=== PATIENT | male | born 1965 ===

== ENCOUNTER 2019-07-03 20:07 | Emergency (ER) | payer BC ==
[2019-07-03] MEDS ORDERED: Tetan/Diph/Pertus SYR(Tdap)* 0.5 ML SYR(BOOSTRIX) use SYR IM ONE (20:08)
--- NOTE | 2019-07-03 20:09 | UC ---
Laceration HPI - HPI Summary HPI Summary: 54 yo male presents with RIGHT 5th digit laceration. He tells me that he was out to dinner at a local restaurant and went to pull his seat forward and his right 5th fingertip was caught between the seat cushion and the metal of the chair. He pulled his finger away and sustained a laceration to the tip of his right 5th digit. He is right handed. He bandaged the area and came to . Unsure the date of his last tetanus. - History Of Current Complaint Stated Complaint: FINGER LACERATION Time Seen by Provider: 07/03/19 20:07 Hx Obtained From: Patient Laceration Location: Finger Onset/Duration: Sudden Onset Severity: Mild Pain Intensity: 3 Pain Scale Used: 0-10 Numeric - Allergies/Home Medications Allergies/Adverse Reactions: Allergies Allergy/AdvReac Type Severity Reaction Status Date / Time No Known Allergies Allergy Verified 07/03/19 20:21 PMH/Surg Hx/FS Hx/Imm Hx - Additional Past Medical History Additional PMH: None - Surgical History Surgical History: None - Family History Known Family History: Positive: Non-Contributory - Social History Occupation: Employed Full-time Lives: With Family Alcohol Use: Occasionally Substance Use Type: None Smoking Status (MU): Former Smoker Review of Systems All Other Systems Reviewed And Are Negative: No Constitutional: Positive: Negative Skin: Positive: Other - Finger laceration Respiratory: Positive: Negative Cardiovascular: Positive: Negative Neurovascular: Positive: Negative Neurological: Positive: Negative Psychological: Positive: Negative Physical Exam - Summary Physical Exam Summary: GENERAL: NAD. WDWN. No pain distress. SKIN: RIGHT 5th digit: distal aspect with 1.0cm partial avulsion horizontal through the distal fingernail. Radial aspect avulsed, but ulnar aspect attached in a flap-like fashion. Scant bleeding. No bone appreciated. CHEST: No accessory muscle use. Breathing comfortably and in no distress. CV: Pulses intact. Cap refill <2seconds NEURO: Alert. PSYCH: Age appropriate behavior. Triage Information Reviewed: Yes Vital Signs: Vital Signs: Temp Pulse Resp BP Pulse Ox 99.5 F 94 16 153/113 98 07/03/19 20:14 07/03/19 20:14 07/03/19 20:14 07/03/19 20:14 07/03/19 20:14 Vital Signs Reviewed: Yes Laceration Repair - Laceration Repair 1 Description: Linear Laceration Size After Repair: Length (cm) - 1.0 Modified For Repair: No Anesthesia Used: 2.0% Lido Irrigation With Pressure Irrigation Device: Yes Closure Material: Sutures - #5 Closure Method: Single Layer Suture Of: Skin Suture Type: Prolene - 6-0 Laceration Course/Dx - Course/Dx Course Of Treatment: The procedure was explained to the pt and all questions were answered. A time out was performed, witnessed, and signed. The area was irrigated with 200mL sterile saline. 2mL of 2% lidocaine without epi was administered and good anesthetization was achieved. In the usual sterile fashion, FIVE 6-0 prolene interrupted sutures were placed. Homeostasis achieved. The wound was bandaged with tubegauze . Pt tolerated procedure well. tdap updated today - Diagnosis Provider Diagnosis: Laceration of right little finger Discharge ED - Sign-Out/Discharge Documenting (check all that apply): Patient Departure All imaging exams completed and their final reports reviewed: No - Discharge Plan Condition: Stable Disposition: HOME Patient Education Materials: Care For Your Stitches (ED), Laceration (DC) Referrals: No Primary Care Phys,NOPCP [Primary Care Provider] - Additional Instructions: Change the bandage daily, starting in 2 days, until the sutures are removed 1) Please keep the area bandage, clean, dry, and intact for the next 48hours. Then change the bandage daily until sutures are removed. 2) If you develop a fever, colored or thick discharge, increased pain or swelling - please call your PCP or return for a wound check. 3) Please return in 10 days to have your FIVE sutures removed. - Billing Disposition and Condition Condition: STABLE Disposition: Home
[2019-07-03] MEDS ORDERED: Lidocaine 2% PF * 5 ML VIAL INJ ONE (20:31)
--- NOTE | 2019-07-04 14:49 | UC ---
- Progress Note Progress Note: wet read correct Course/Dx - Diagnoses Provider Diagnoses: Laceration of right little finger Discharge ED - Sign-Out/Discharge Documenting (check all that apply): Post-Discharge Follow Up All imaging exams completed and their final reports reviewed: Yes - Discharge Plan Condition: Stable Disposition: HOME Patient Education Materials: Care For Your Stitches (ED), Laceration (DC) Referrals: No Primary Care Phys,NOPCP [Primary Care Provider] - Additional Instructions: Change the bandage daily, starting in 2 days, until the sutures are removed 1) Please keep the area bandage, clean, dry, and intact for the next 48hours. Then change the bandage daily until sutures are removed. 2) If you develop a fever, colored or thick discharge, increased pain or swelling - please call your PCP or return for a wound check. 3) Please return in 10 days to have your FIVE sutures removed. - Billing Disposition and Condition Condition: STABLE Disposition: Home
== END 2019-07-03 22:00 | disposition home or self-care (01) ==
LOC: UCEAST 20:07
DX: S61.216A Laceration without foreign body of right little finger without damage to nail, initial encounter (principal); W23.0XXA Caught, crushed, jammed, or pinched between moving objects, initial encounter; Y92.511 Restaurant or cafe as the place of occurrence of the external cause; Z23 Encounter for immunization; Z87.891 Personal history of nicotine dependence
CPT/HCPCS: 12001; 73140; 90471; 90715; 99201; G0463